=== PATIENT | female | born 1990 | race Hispanic/Latino ===

== ENCOUNTER 2018-01-01 09:11 | Emergency (ER) | payer OTHER ==
[2018-01-01 09:11] VITALS: BMI 33.6
[2018-01-01 09:20] VITALS: TEMP 98.1
--- NOTE | 2018-01-01 09:30 | ED PDOC ---
Arrival/HPI - General Chief Complaint: Lower Extremity Problem/Injury Historian: Patient - History of Present Illness Narrative History of Present Illness (Text): 01/01/18 09:34 27 year old female with no significant PMH presents to the Emergency department complaining of right lower leg pain s/p fall 1 hour ago. Pt [place] [facility] [place] she slipped and fell, landing on her right knee. Denies head strike or LOC. Able to ambulate and bear weight, but causes pain. Has not taken any medication for pain. Denies headache, vision changes, dizziness, neck pain, vomiting, abdominal pain, back pain, incontinence, ankle pain, foot pain. Time/Duration: Prior to Arrival, 1 hour Symptom Onset: Sudden Symptom Course: Unchanged Past Medical History - Provider Review Nursing Documentation Reviewed: Yes - Past History Past History: No Previous - Infectious Disease Hx of Infectious Diseases: None - Tetanus Immunization Tetanus Immunization: Unknown - Cardiac Hx Cardiac Disorders: No Hx Hypertension: No - Pulmonary Hx Tuberculosis: No - Neurological HX Cerebrovascular Accident: No Hx Seizures: No - Hematological/Oncological Hx Cancer: No - Genitourinary/Gynecological Hx Sexually Transmitted Diseases: No - Psychiatric Hx Depression: No Hx Emotional Abuse: No Hx Physical Abuse: No Hx Substance Use: No - Past Surgical History Past Surgical History: No Previous - Anesthesia Hx Anesthesia: No Hx Anesthesia Reactions: No Hx Malignant Hyperthermia: No - Suicidal Assessment Feels Threatened In Home Enviroment: No Family/Social History - Physician Review Nursing Documentation Reviewed: Yes Family/Social History: No Known Family HX Smoking Status: Never Smoked Hx Alcohol Use: No Hx Substance Use: No Hx Substance Use Treatment: No Allergies/Home Meds Allergies/Adverse Reactions: Allergies amoxicillin Allergy (Verified 01/01/18 09:20) ANAPHYLAXIS pcn Adverse Reaction (Uncoded 01/01/18 09:21) VOMITING Review of Systems - Patients Enrolled in [employer] [X]: A conversation was conducted with the primary medical doctor. - Review of Systems Constitutional: Normal Eyes: Normal Respiratory: Normal Cardiovascular: Normal Gastrointestinal: Normal Musculoskeletal: Arthralgias (right knee pain). absent: Back Pain, Neck Pain Skin: Normal. absent: Other (bruising) Neurological: Normal. absent: Headache, Dizziness Endocrine: Normal Hemo/Lymphatic: Normal Psychiatric: Normal Physical Exam Vital Signs Reviewed: Yes Vital Signs Temp Pulse Resp BP Pulse Ox 01/01/18 09:14 98.1 F 85 19 110/78 100 Temperature: Afebrile Blood Pressure: Normal Pulse: Regular Respiratory Rate: Normal Appearance: Positive for: Well-Appearing, Non-Toxic, Comfortable Pain Distress: None Mental Status: Positive for: Alert and Oriented X 3 - Systems Exam Head: Present: Atraumatic, Normocephalic Pupils: Present: PERRL Extroacular Muscles: Present: EOMI Conjunctiva: Present: Normal Mouth: Present: Moist Mucous Membranes Neck: Present: Normal Range of Motion Respiratory/Chest: Present: Clear to Auscultation, Good Air Exchange. No: Respiratory Distress, Accessory Muscle Use Cardiovascular: Present: Regular Rate and Rhythm, Normal S1, S2. No: Murmurs Abdomen: Present: Normal Bowel Sounds. No: Tenderness, Distention, Peritoneal Signs Back: Present: Normal Inspection. No: Midline Tenderness, Paraspinal Tenderness Upper Extremity: Present: Normal Inspection, NORMAL PULSES, Neurovascularly Intact, Capillary Refill < 2s. No: Cyanosis, Edema, Tenderness, Swelling, Erythema, Temperature Abnormalties Lower Extremity: Present: Normal Inspection, NORMAL PULSES, Tenderness (over patella, anterior knee, mid-tibia ), Neurovascularly Intact, Capillary Refill < 2 s. No: Edema, CALF TENDERNESS, Normal ROM (decreased knee flexion secondary to pain), Rodrick's Sign, Swelling, Deformity, Temperature Abnormalties Neurological: Present: GCS=15, CN II-XII Intact, Speech Normal, Motor Func Grossly Intact, Normal Sensory Function, Gait Normal Skin: Present: Warm, Dry, Normal Color. No: Rashes Psychiatric: Present: Alert, Oriented x 3, Normal Insight, Normal Concentration Medical Decision Making ED Course and Treatment: 01/01/18 09:32 Initial Plan: * Right knee XR with patella * Right tib/fib XR * Ibuprofen 01/01/18 10:41 Right Tib/Fib XR: FINDINGS: BONES: No fracture or destructive lesion. JOINT SPACES: Unremarkable. OTHER FINDINGS: None. IMPRESSION: Unremarkable radiographs of the right tibia and fibula. Right Knee XR: FINDINGS: BONES: Normal. No fracture. JOINTS: Normal. No osteoarthritis. JOINT EFFUSION: None. OTHER FINDINGS: None. IMPRESSION: Normal radiographs of the right knee. Patient placed in right knee immobilizer secondary to request and inability to place ALLA bandage under pants. Plan of care discussed with patient, and strict instructions given regarding prescriptions, importance of follow up, and signs to return to Emergency Department, to include worsening pain, difficulty walking, numbness, paresthesias, or any other new/worsening symptoms. Patient verbalizes understanding of discussion. Patient A&Ox3, ambulating with steady gait, stable for discharge home. Impression: Knee contusion Disposition/Present on Arrival - Present on Arrival Any Indicators Present on Arrival: No History of DVT/PE: No History of Uncontrolled Diabetes: No Urinary Catheter: No History of Decub. Ulcer: No History Surgical Site Infection Following: None - Disposition Have Diagnosis and Disposition been Completed?: Yes Diagnosis: Contusion, knee and lower leg Disposition: HOME/ ROUTINE Disposition Time: 10:30 Patient Plan: Discharge Condition: IMPROVED Discharge Instructions (ExitCare): Contusion (DC) Additional Instructions: Rest, elevate, ice injured leg No strenuous activity Keep knee compressed in brace or ALLA bandage Ibuprofen for pain, take with food every 8 hours as needed Followup with orthopedics within 2 days Followup with primary within 2 days Return to Er for any new/worsening symptoms Prescriptions: Ibuprofen [Motrin Tab] 600 mg PO Q8H PRN #30 tab PRN Reason: Pain, Moderate (4-7) Referrals: José Miguel Jesus MD [Staff Provider] - Follow up with primary Forms: [employer] (Setswana), WORK NOTE
--- NOTE | 2018-01-01 10:37 | RAD ---
Date of service: 01/01/2018 PROCEDURE: Right Knee and patella radiographs. HISTORY: fall, r/o fracture COMPARISON: None. FINDINGS: BONES: Normal. No fracture. JOINTS: Normal. No osteoarthritis. JOINT EFFUSION: None. OTHER FINDINGS: None. IMPRESSION: Normal radiographs of the right knee.
--- NOTE | 2018-01-01 10:38 | RAD ---
Date of service: 01/01/2018 PROCEDURE: Radiographs of the right tibia and fibula. HISTORY: fall, r/o fracture COMPARISON: None available TECHNIQUE: Frontal and lateral views obtained. FINDINGS: BONES: No fracture or destructive lesion. JOINT SPACES: Unremarkable. OTHER FINDINGS: None. IMPRESSION: Unremarkable radiographs of the right tibia and fibula.
[2018-01-01 10:42] VITALS: BP 93/61; PULSE 76; RESP 18; O2SAT 98
== END 2018-01-01 11:02 | disposition home or self-care (01) ==
LOC: ED 09:11
DX: S80.01XA Contusion of right knee, initial encounter (principal); W01.0XXA Fall on same level from slipping, tripping and stumbling without subsequent striking against object, initial encounter; Y92.522 Railway station as the place of occurrence of the external cause